=== PATIENT | female | born 1960 | race Caucasian/White ===

== ENCOUNTER → 2017-10-03 12:40 | Outpatient (CLI) | payer OTHER, SELFPAY | PROVIDERS: Family Provider Physician Assistant; PCP Physician Assistant; Visit Provider Physician Assistant | DX: E28.39 Other primary ovarian failure (principal); Z78.0 Asymptomatic menopausal state | CPT/HCPCS: 77080 ==

== ENCOUNTER → 2017-10-07 15:17 | Outpatient (CLI) | payer OTHER, SELFPAY ==
--- NOTE | 2017-10-07 15:19 | DI.RAD.S_ITS ---
PROCEDURE: XR CHEST 2V INDICATIONS: Persistant cough TECHNIQUE: 2 views of the chest were acquired. COMPARISON: [facility], , CHEST 2 VIEW, 03/16/2010, 10:35. FINDINGS: Surgical changes and devices: None. Lungs and pleura: No pleural effusions or pneumothorax. Lungs are clear. Mediastinum: Mediastinal contours are normal. Heart size is normal. Bones and chest wall: No suspicious bony abnormalities. Soft tissues appear unremarkable. IMPRESSION: No acute disease Dictated by: Hector Saleh M.D. on 10/07/2017 at 15:46 Approved by: Hector Saleh M.D. on 10/07/2017 at 15:47
== END ==
PROVIDERS: Family Provider Physician Assistant; PCP Physician Assistant; Visit Provider Physician Assistant
DX: R05 Cough (principal)
CPT/HCPCS: 71046

== ENCOUNTER → 2017-10-17 12:31 | Outpatient (CLI) | payer OTHER, SELFPAY ==
--- NOTE | 2017-10-17 12:32 | DI.MG.S_ITS ---
BILATERAL DIGITAL SCREENING MAMMOGRAM 3D/2D WITH CAD: 10/17/2017 CLINICAL: Routine screening. Family history of breast cancer. Comparison is made to exams dated: 12/24/2013 mammogram, 09/03/2012 mammogram, and 09/13/2011 mammogram - [facility]. There are scattered fibroglandular elements in both breasts. Current study was also evaluated with a Computer Aided Detection (CAD) system. There is a focal asymmetry in the right breast at 8 o'clock middle depth. No other significant masses, calcifications, or other findings are seen in either breast. IMPRESSION: INCOMPLETE: NEEDS ADDITIONAL IMAGING EVALUATION The focal asymmetry in the right breast is indeterminate. Additional views with possible ultrasound are recommended. This exam was interpreted at Station ID: [id number]. NOTE: For mammograms, a report in lay terms will be sent to the patient. Approximately 15% of breast malignancies will not be visualized mammographically. In the management of a palpable breast mass, a negative mammogram must not discourage biopsy of a clinically suspicious lesion. Electronically Signed By: Kailyn perez/ephraim:10/17/2017 14:23:28 letter sent: Additional Imaging Needed ACR BI-RADS Category 0: Incomplete 3340F
== END ==
PROVIDERS: Family Provider Physician Assistant; PCP Physician Assistant; Visit Provider Physician Assistant
DX: Z12.31 Encounter for screening mammogram for malignant neoplasm of breast (principal); Z80.3 Family history of malignant neoplasm of breast
CPT/HCPCS: 77063; 77067

== ENCOUNTER → 2017-10-31 08:57 | Outpatient (CLI) | payer OTHER, SELFPAY ==
--- NOTE | 2017-10-31 08:59 | DI.MG.S_ITS ---
UNILATERAL RIGHT DIGITAL DIAGNOSTIC MAMMOGRAM 3D/2D WITH ADDITIONAL VIEWS: 10/31/2017 CLINICAL: Additional evaluation requested from prior study. Comparison is made to exams dated: 10/17/2017 mammogram, 12/24/2013 mammogram, and 09/03/2012 mammogram - [facility]. There are scattered fibroglandular elements in the right breast. There is a 1.2 cm oval equal density mass with a circumscribed margin in the right breast at 9 o'clock middle depth. No other significant masses or calcifications are seen in the breast. IMPRESSION: INCOMPLETE: NEEDS ADDITIONAL IMAGING EVALUATION The 1.2 cm oval equal density mass in the right breast is indeterminate. An ultrasound is recommended. This exam was interpreted at Station ID: [id number]. NOTE: For mammograms, a report in lay terms will be sent to the patient. Approximately 15% of breast malignancies will not be visualized mammographically. In the management of a palpable breast mass, a negative mammogram must not discourage biopsy of a clinically suspicious lesion. Electronically Signed By: eJsus patricia/ephraim:10/31/2017 11:52:27 copy to: Benny Mendes ACR BI-RADS Category 0: Incomplete 3340F
--- NOTE | 2017-10-31 08:59 | DI.US.S_ITS ---
ULTRASOUND OF RIGHT BREAST: 10/31/2017 CLINICAL: Patient returns for additional imaging over a suspected mass in the right breast. Comparison is made to exams dated: 10/31/2017 mammogram, 10/17/2017 mammogram, and 02/07/2014 [facility]. Color flow ultrasound of the right breast was performed. Thompson scale images of the real-time examination were reviewed. There is a benign 9 mm simple cyst in the right breast at 9 o'clock middle depth. This correlates with mammography findings. IMPRESSION: BENIGN There is no sonographic evidence of malignancy. The 9 mm simple cyst in the right breast is benign. A 1 year screening mammogram is recommended. This exam was interpreted at Station ID: [id number]. Electronically Signed By: Jesus patricia/ephraim:10/31/2017 11:53:10 copy to: Benny Mendes letter sent: Normal Exam Ultrasound BI-RADS: 2 Benign
== END ==
PROVIDERS: Family Provider Physician Assistant; PCP Physician Assistant; Visit Provider Physician Assistant
DX: R92.8 Other abnormal and inconclusive findings on diagnostic imaging of breast (principal); N60.01 Solitary cyst of right breast
CPT/HCPCS: 76642; 77065; G0279

== ENCOUNTER → 2017-11-21 09:03 | Outpatient (CLI) | payer OTHER, SELFPAY ==
[2017-11-21 10:29] LABS: Cholesterol 163 mg/dL (140-199); HDL Cholesterol 43 mg/dL (40-60); LDL Cholesterol Calculated 102 mg/dL (<100); Triglycerides 89 mg/dL (35-150)
== END ==
PROVIDERS: Family Provider Physician Assistant; PCP Physician Assistant; Visit Provider Physician Assistant
DX: Z13.220 Encounter for screening for lipoid disorders (principal)
CPT/HCPCS: 36415; 80061

== ENCOUNTER → 2019-02-12 14:59 | Outpatient (CLI) | payer OTHER, SELFPAY ==
--- NOTE | 2019-02-12 15:04 | DI.RAD.S_ITS ---
PROCEDURE: XR KNEE LT 3V INDICATIONS: left knee pain TECHNIQUE: 3 views of the knee were acquired. COMPARISON: [facility], , KNEE 3V LEFT, 11/30/2015, 10:38. FINDINGS: Bones: No fractures or dislocations. No suspicious bony lesions. There are moderate degenerative changes of the medial compartment of the left knee as evidenced by joint space narrowing, periarticular sclerosis, and osteophyte formation. There is mild degenerative change of the patellar compartment as evidenced by osteophyte formation and joint space narrowing. There is minimal degenerative change of the lateral compartment. Soft tissues: No joint effusion. IMPRESSION: Degenerative changes of the left knee as described above, worst in the medial compartment. Dictated by: Wu Urban M.D. on 02/12/2019 at 17:48 Approved by: Wu Urban M.D. on 02/12/2019 at 17:54
== END ==
PROVIDERS: PCP Physician Assistant; Visit Provider Nurse Practitioner Family
DX: M25.562 Pain in left knee (principal)
CPT/HCPCS: 73562

== ENCOUNTER → 2019-05-03 08:12 | Outpatient (CLI) | payer OTHER, SELFPAY ==
--- NOTE | 2019-05-03 | DI.MRI.S_ITS ---
PROCEDURE: MR KNEE LT WO CON INDICATIONS: unilateral primary osteoarthritis, left knee TECHNIQUE: [employer] protocol was performed. Noncontrast sagittal PD fast spin echo and T2 fast spin echo with fat saturation, sagittal 3-D FLASH with fat saturation; coronal T1 spin echo and PD fast spin echo with fat saturation, and axial PD fast spin echo with fat saturation through the knee. COMPARISON: [facility], CR, XR KNEE LT 3V, 02/12/2019, 15:13. FINDINGS: Image quality: Excellent. Menisci: Medial meniscal tear involving the body and anterior horn with partial extrusion. Abnormal signal extends to the superior articular surface as well as the periphery. Lateral meniscus intact. Cruciate ligaments: Anterior cruciate ligament appears intact. Posterior cruciate ligament appears intact. Medial structures: There is medial bowing of the medial collateral ligament, with mild internal signal changes and no complete rupture. There is adjacent soft tissue edema. The appearance could reflect reactive changes to medial compartment pathology, versus low-grade sprain of the MCL. Pes anserinus tendons appear grossly unremarkable. Semimembranosus tendon appears intact. Lateral structures: The lateral collateral ligament intact. Biceps femoris tendon appears intact. Popliteus tendon grossly unremarkable. Iliotibial band appears intact. Anterior structures: Quadriceps tendon intact. Medial and lateral patellofemoral ligaments intact. There is mild patellar tendinopathy. Prepatellar and superficial infrapatellar subcutaneous edema/fluid. Bones and cartilage: No focal marrow contusion or discrete low signal fracture line. Within the medial compartment, diffuse partial-thickness loss of the femoral and tibial articular cartilage Within the lateral compartment, mild surface fraying of the central weightbearing tibial cartilage. No focal femoral cartilage defect Within the patellofemoral compartment, diffuse surface fraying of the femoral and patellar articular cartilage. Joint space: Small joint effusion. Westbrook's cyst is seen measuring approximately 4 cm in the cephalocaudad dimension. No evidence of intra-articular loose body identified. IMPRESSION: Medial meniscal tear involving the body and anterior horn with partial extrusion as detailed above Patellar tendinopathy with adjacent fluid/edema Mild tricompartmental degenerative joint disease as above. Small joint effusion Westbrook's cyst Dictated by: Hector Saleh M.D. on 05/03/2019 at 13:06 Approved by: Hector Saleh M.D. on 05/03/2019 at 13:12
== END ==
PROVIDERS: PCP Physician Assistant; Visit Provider Orthopaedic Surgery Adult Reconstructive Orthopaedic Surgery
DX: M17.12 Unilateral primary osteoarthritis, left knee (principal); S83.242A Other tear of medial meniscus, current injury, left knee, initial encounter; M71.22 Synovial cyst of popliteal space [Baker], left knee; M25.462 Effusion, left knee
CPT/HCPCS: 73721

== ENCOUNTER → 2019-05-11 15:36 | Outpatient (CLI) | payer OTHER, SELFPAY ==
[2019-05-11 16:24] LABS: Add Manual Diff / Slide Review NO; Basophils Absolute Auto 0 /uL (0-100); Basophils Percent Auto 0.7 % (0-2); Eosinophils Absolute Auto 200 /uL (0-450); Eosinophils Percent Auto 2.4 % (2-4); Hematocrit 40.8 % (36-46); Lymphocytes Absolute Auto 2500 /uL (1100-4500); Lymphocytes Percent Auto 36.8 % (25-40); Mean Corpuscular HGB Conc 34.2 % (30-36); Mean Corpuscular Hemoglobin 28.9 PG (26-34); Mean Corpuscular Volume 84.4 fL (80-100); Monocytes Absolute Auto 600 /uL (0-900); Monocytes Percent Auto 8.3 % (3-14); Neutrophils Absolute Auto 3500 /uL (1500-7000); Neutrophils Percent Auto 51.8 % (50-75); Platelet Count 246 X10^3/uL (150-400); Red Blood Cell Count 4.83 X10^6/uL (4.0-5.2); Red Cell Distribution Width 13.8 % (11.6-14.8); White Blood Cell Count 6.8 X10^3/uL (4.5-11.0)
[2019-05-11 16:38] LABS: BUN Creatinine Ratio 28.3 (6-22); Blood Urea Nitrogen 17 mg/dL (7-17); Calcium 10.1 mg/dL (8.4-10.2); Carbon Dioxide 26 mmol/L (22-32); Chloride 104 mmol/L (98-107); Estimated Glomerular Filt Rate > 60.0 mL/min (>60); Glucose 87 mg/dL (80-110); HEMOLYSIS < 15 (0-50); Potassium 4.3 mmol/L (3.4-5.1); Sodium 141 mmol/L (137-145)
== END ==
PROVIDERS: PCP Physician Assistant; Referring Provider Orthopaedic Surgery Adult Reconstructive Orthopaedic Surgery; Visit Provider Orthopaedic Surgery Adult Reconstructive Orthopaedic Surgery
DX: Z01.818 Encounter for other preprocedural examination (principal); Z01.812 Encounter for preprocedural laboratory examination
CPT/HCPCS: 36415; 80048; 85025; 93005

== ENCOUNTER → 2020-03-27 17:47 | Outpatient (CLI) | payer OTHER, SELFPAY ==
--- NOTE | 2020-03-27 17:48 | DI.MG.S_ITS ---
BILATERAL DIGITAL SCREENING MAMMOGRAM 3D/2D WITH CAD: 03/27/2020 CLINICAL: Routine screening. Family history of breast cancer. Comparison is made to exams dated: 10/31/2017 mammogram, 10/17/2017 mammogram, 12/24/2013 mammogram, and 10/13/2012 mammogram - [facility]. There are scattered fibroglandular elements in both breasts. Current study was also evaluated with a Computer Aided Detection (CAD) system. There is a new 1.3 cm round equal density asymmetry with a circumscribed margin in the right breast at 11 o'clock middle depth. No other significant masses, calcifications, or other findings are seen in either breast. IMPRESSION: INCOMPLETE: NEEDS ADDITIONAL IMAGING EVALUATION The new 1.3 cm round equal density asymmetry in the right breast most likely is a cyst and is indeterminate. Additional views with possible ultrasound are recommended. This exam was interpreted at Station ID: [id number]. NOTE: For mammograms, a report in lay terms will be sent to the patient. Approximately 15% of breast malignancies will not be visualized mammographically. In the management of a palpable breast mass, a negative mammogram must not discourage biopsy of a clinically suspicious lesion. Electronically Signed By: Kristin quiros/ephraim:03/29/2020 13:44:32 letter sent: Additional Imaging Needed ACR BI-RADS Category 0: Incomplete 3340F
== END ==
PROVIDERS: PCP Nurse Practitioner Family; Referring Provider Nurse Practitioner Family; Visit Provider Nurse Practitioner Family
DX: Z12.31 Encounter for screening mammogram for malignant neoplasm of breast (principal); Z80.3 Family history of malignant neoplasm of breast
CPT/HCPCS: 77063; 77067

== ENCOUNTER → 2020-04-26 15:01 | Outpatient (CLI) | payer OTHER, SELFPAY ==
--- NOTE | 2020-04-26 | DI.MG.S_ITS ---
BILATERAL DIGITAL DIAGNOSTIC MAMMOGRAM 3D/2D WITH ADDITIONAL VIEWS: 04/26/2020 CLINICAL: Additional evaluation requested from prior study. Comparison is made to exams dated: 03/27/2020 mammogram, 10/17/2017 mammogram, and 12/24/2013 mammogram - [facility]. There are scattered fibroglandular elements in both breasts. Redemonstration of previously described 1.3 cm round equal density asymmetry with a circumscribed margin in the right breast at 11 o'clock middle depth. This is seen in additional views and is not significantly changed. There is a 0.3cm oval equal density focal asymmetry in the right breast 10 o'clock axis, middle depth. The possible oval equal density asymmetry in the left breast posterior depth superior region seen on the mediolateral oblique view only is not reproduced and presumably represented superimposed breast tissue. No other significant masses or calcifications are seen in either breast. IMPRESSION: INCOMPLETE: NEEDS ADDITIONAL IMAGING EVALUATION The 1.3 cm round equal density asymmetry in the right breast at 11 o'clock middle depth most likely is a cyst and is indeterminate. There is a 0.3cm oval equal density focal asymmetry in the right breast 10 o'clock axis, middle depth. An ultrasound is recommended for further evaluation and is scheduled to immediately follow this examination. This exam was interpreted at Station ID: [id number]. NOTE: For mammograms, a report in lay terms will be sent to the patient. Approximately 15% of breast malignancies will not be visualized mammographically. In the management of a palpable breast mass, a negative mammogram must not discourage biopsy of a clinically suspicious lesion. Electronically Signed By: Bear Wong M.D. aty/:04/26/2020 16:30:17 ACR BI-RADS Category 0: Incomplete 3340F
--- NOTE | 2020-04-26 15:04 | DI.US.S_ITS ---
ULTRASOUND OF RIGHT BREAST: 04/26/2020 CLINICAL: Patient returns today to evaluate a focal asymmetry in the right breast. Comparison is made to exams dated: 04/26/2020 mammogram, 03/27/2020 mammogram, 10/31/2017 ultrasound, 10/31/2017 mammogram, 10/17/2017 mammogram, and 12/24/2013 mammogram - [facility]. Color flow and real-time ultrasound of the right breast were performed. Thompson scale images of the real-time examination were reviewed. There is a 0.3 cm x 0.3 cm x 0.3 cm oval cyst in the right breast at 10 o'clock middle depth 6 cm from the nipple. This oval cyst is hypoechoic. This correlates with mammography findings. Color flow imaging demonstrates that there is no vascularity present. There also is a 1.2 cm x 1.4 cm x 1.2 cm wider than tall oval cyst in the right breast at 9 o'clock middle depth 6 cm from the nipple. This oval cyst is anechoic with posterior acoustic enhancement. This correlates with mammography findings. Color flow imaging demonstrates that there is no vascularity present. IMPRESSION: PROBABLY BENIGN The 0.3 cm x 0.3 cm x 0.3 cm oval cyst in the right breast at 10 o'clock middle depth resembles a complicated cyst and is probably benign. The 1.2 cm x 1.4 cm x 1.2 cm wider than tall oval simple cyst in the right breast at 9 o'clock middle depth is benign. A follow-up right mammogram and an ultrasound in 6 months is recommended to demonstrate stability. Findings and recommendations were conveyed to the patient during today's evaluation. This exam was interpreted at Station ID: [id number]. Electronically Signed By: Bear Wong M.D. aty/:04/26/2020 16:28:07 letter sent: Followup Recommended Ultrasound BI-RADS: 3 Probably benign
== END ==
PROVIDERS: PCP Nurse Practitioner Family; Referring Provider Nurse Practitioner Family; Visit Provider Nurse Practitioner Family
DX: R92.8 Other abnormal and inconclusive findings on diagnostic imaging of breast (principal); N60.01 Solitary cyst of right breast
CPT/HCPCS: 76642; 77066; G0279

== ENCOUNTER → 2020-10-18 13:45 | Outpatient (CLI) | payer OTHER, SELFPAY ==
[2020-10-18 14:17] LABS: COVID19 -Nasal RAPID Negative (Negative)
== END ==
PROVIDERS: PCP Nurse Practitioner Family; Referring Provider Surgery; Visit Provider Surgery
DX: Z20.822 Contact with and (suspected) exposure to COVID-19 (principal)
CPT/HCPCS: 87635; C9803

== ENCOUNTER 2020-10-19 13:35 | Day surgery (SDC) | payer OTHER, SELFPAY ==
[2020-10-19 14:03] VITALS: BP 132/84; PULSE 98; RESP 16; TEMP 36.3; O2SAT 98; BMI 34.5
[2020-10-19] MEDS: LACTATED RINGERS 1,000 ML 42 ML IV (14:15)
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
[2020-10-19] MEDS: MIDAZOLAM 5 MG/5 ML VIAL IV (14:43)
[2020-10-19] MEDS: fentaNYL 250 MCG/5 ML INJ IV (14:47)
--- NOTE | 2020-10-19 14:54 | PM.OP.ENDO ---
Operative Date/Time/Diagnoses Date of procedure: 10/19/20 Time of procedure: 14:54 Post-op diagnosis: same Procedure & Clinicians Study performed: colonoscopy Same procedure as scheduled: Yes Indications: colon cancer screening Surgeon: Yolette Mittal Procedure Notes SCOAP/Timeout: Done Procedure in detail: Preop diagnosis: Colon cancer screening Postop diagnosis: Same Operative procedure: Colonoscopy with moderate sedation Surgeon: Kristi Mittal MD Findings: Pandiverticulosis mostly small and scant with the exception the sigmoid colon who has moderate intensity. No polyps Procedure: Patient is placed in a lateral position. Rectal exam performed showing normal tone no masses. Colonoscope inserted into the rectum and advanced to the ileocecal valve with minimal difficulty. Insufflation and extraction of the scope including a retroflexed in the rectum had the above findings. Impression: No polyps. Francis diverticulosis predominantly small with the exception of moderate-sized diverticulosis of the sigmoid colon. She also has external hemorrhoidal tags Plan: Repeat colonoscopy in 10 years unless otherwise indicated by change in family history or clinical condition Scope withdrawal time: 4 Sedation minutes: 12 Findings: diverticulosis Specimen(s): none sent Complications: none Impression: Small scattered pandiverticulosis with increased intensity in size in the sigmoid colon. No polyps. Hemorrhoidal tags. Post-procedure Recommendations: Colonscopy in 10 years and Continue medication(s) Follow up: as needed Disposition: PACU
[2020-10-19 14:58] VITALS: BP 123/77; PULSE 90; RESP 14; TEMP 36.9; O2SAT 92
[2020-10-19 15:03] VITALS: BP 122/71; PULSE 91; RESP 14; O2SAT 93
[2020-10-19 15:09] VITALS: BP 128/80; PULSE 91; RESP 16; O2SAT 96
[2020-10-19 15:11] VITALS: BP 136/73; PULSE 91; RESP 16; TEMP 36.4; O2SAT 96
== END 2020-10-19 15:25 | disposition home or self-care (01) ==
PROVIDERS: PCP Nurse Practitioner Family; Referring Provider Surgery; Visit Provider Surgery
PROC: 0DJD8ZZ Inspection of Lower Intestinal Tract, Via Natural or Artificial Opening Endoscopic (ICD-10-PCS; CPT 45378; principal; 2020-10-19 14:30)
DX: Z12.11 Encounter for screening for malignant neoplasm of colon (principal); K57.30 Diverticulosis of large intestine without perforation or abscess without bleeding; K64.4 Residual hemorrhoidal skin tags
CPT/HCPCS: 45378; 99152; J2250; J3010

== ENCOUNTER → 2021-02-15 08:46 | Outpatient (CLI) | payer OTHER, SELFPAY ==
--- NOTE | 2021-02-15 08:47 | DI.MG.S_ITS ---
UNILATERAL RIGHT DIGITAL DIAGNOSTIC MAMMOGRAM 3D/2D SHORT-TERM FOLLOW-UP: 02/15/2021 CLINICAL: Short term follow up of the right breast. Comparison is made to exams dated: 04/26/2020 ultrasound, 04/26/2020 mammogram, 03/27/2020 mammogram, and 10/31/2017 [facility]. There are scattered fibroglandular elements in right breast. There is a 1.3 cm round equal density asymmetry with a circumscribed margin in the right breast at 11 o'clock middle depth. This is seen in additional views. This is not significantly changed. There also is a 0.3 cm oval equal density asymmetry in the right breast at 10 o'clock middle depth. This is more prominent. No other significant masses or calcifications are seen in the breast. IMPRESSION: INCOMPLETE: NEEDS ADDITIONAL IMAGING EVALUATION The 1.3 cm round equal density asymmetry in the right breast at 11 o'clock middle depth consistent with a cyst is unchanged. Ultrasound is recommended to document sonographic stability, and has been scheduled to follow immediately. The 0.3 cm oval equal density asymmetry in the right breast at 10 o'clock middle depth resembles a cyst or a lymph node and unchanged. Ultrasound is recommended to document sonographic stability, and has been scheduled to follow immediately. This exam was interpreted at Station ID: [id number]. NOTE: For mammograms, a report in lay terms will be sent to the patient. Approximately 15% of breast malignancies will not be visualized mammographically. In the management of a palpable breast mass, a negative mammogram must not discourage biopsy of a clinically suspicious lesion. Electronically Signed By: Lan Hardy M.D. jr/:02/15/2021 11:07:47 ACR BI-RADS Category 0: Incomplete 3340F
--- NOTE | 2021-02-15 08:47 | DI.US.S_ITS ---
LIMITED ULTRASOUND OF RIGHT BREAST: 02/15/2021 CLINICAL: Patient returns for a follow up of the right breast. Comparison is made to exams dated: 02/15/2021 mammogram, 04/26/2020 ultrasound, 04/26/2020 mammogram, 03/27/2020 mammogram, 10/31/2017 ultrasound, and 10/31/2017 mammogram - [facility]. Color flow and real-time ultrasound of the right breast 9-10 o'clock region were performed. Thompson scale images of the real-time examination were reviewed. There is a 1.1 cm x 0.5 cm taller than wide irregular mass in the right breast at 10 o'clock posterior depth 7 cm from the nipple. This irregular mass is hypoechoic with no posterior acoustic shadowing or enhancement. There also is a benign 1.2 cm x 1.4 cm x 1.2 cm wider than tall oval cyst in the right breast at 9 o'clock middle depth 6 cm from the nipple. This oval cyst is anechoic with posterior acoustic enhancement. This abnormality is not significantly changed and correlates with mammography findings. Color flow imaging demonstrates that there is no vascularity present. Additionally, there is a benign 0.3 cm x 0.3 cm x 0.3 cm oval cyst in the right breast at 10 o'clock middle depth 6 cm from the nipple. This oval cyst is hypoechoic. This abnormality is not significantly changed and correlates with mammography findings. Color flow imaging demonstrates that there is no vascularity present. IMPRESSION: SUSPICIOUS OF MALIGNANCY The 1.1 cm x 0.5 cm taller than wide irregular mass in the right breast at 10 o'clock posterior depth is suspicious of malignancy. An ultrasound guided biopsy is recommended. The 1.2 cm x 1.4 cm x 1.2 cm wider than tall oval cyst in the right breast at 9 o'clock middle depth is consistent with a simple cyst and is benign. The 0.3 cm x 0.3 cm x 0.3 cm oval cyst in the right breast at 10 o'clock middle depth resembles a complicated cyst and is benign. This exam was interpreted at Station ID: [id number]. Electronically Signed By: Lan Hardy M.D., jr/ephraim:02/15/2021 11:03:17 letter sent: Biopsy Required Ultrasound BI-RADS: 4 Suspicious for malignancy
== END ==
PROVIDERS: PCP Nurse Practitioner Family; Referring Provider Nurse Practitioner Family; Visit Provider Nurse Practitioner Family
DX: R92.8 Other abnormal and inconclusive findings on diagnostic imaging of breast (principal); N63.11 Unspecified lump in the right breast, upper outer quadrant; N60.01 Solitary cyst of right breast
CPT/HCPCS: 76642; 77065; G0279

== ENCOUNTER → 2021-02-15 09:20 | Outpatient (CLI) | payer OTHER, SELFPAY | PROVIDERS: PCP Nurse Practitioner Family; Referring Provider Nurse Practitioner Family; Visit Provider Nurse Practitioner Family | DX: R92.8 Other abnormal and inconclusive findings on diagnostic imaging of breast (principal) ==

== ENCOUNTER → 2021-02-27 14:11 | Outpatient (CLI) | payer OTHER, SELFPAY ==
--- NOTE | 2021-02-27 | DI.MG.S_ITS ---
UNILATERAL RIGHT DIGITAL DIAGNOSTIC MAMMOGRAM 3D/2D: 02/27/2021 CLINICAL: Post clip right. Comparison is made to exams dated: 02/15/2021 ultrasound, 02/15/2021 mammogram, and 04/26/2020 ultrasound [facility]. There are scattered fibroglandular elements in right breast. There is a marker clip in the appropriate position in the right breast at 10 o'clock .This marker clip placement is at the biopsy site. IMPRESSION: POST PROCEDURE MAMMOGRAM FOR MARKER PLACEMENT There was a successful marker clip placement in the right breast middle depth. This exam was interpreted at Station ID: [id number]. NOTE: For mammograms, a report in lay terms will be sent to the patient. Approximately 15% of breast malignancies will not be visualized mammographically. In the management of a palpable breast mass, a negative mammogram must not discourage biopsy of a clinically suspicious lesion. Electronically Signed By: Hector cifuentes/:02/27/2021 15:38:03 ACR BI-RADS Category Post-procedure mammogram for marker placement
--- NOTE | 2021-02-27 | PATH_ITS ---
[facility] Accession Number: [id number] . 01 Material submitted: . breast - RIGHT BREAST MASS 10:00 7CMFN . 02 Diagnosis: A. Right Breast Mass, 10 o'clock, 7 cm from the Nipple, Biopsy: Detached fragments of papilloma involved by focal atypical ductal hyperplasia. Apocrine metaplasia is also present. . COMMENT: Clinical and radiographic correlation is necessary. [facility] 03/02/2021 1444 Local . 02 Electronically signed: . Vandana Boswell MD, Pathologist NPI- [id number] . 01 Gross description: . Received one formalin-filled container, labeled with the patient's name and labeled right breast 10 o'clock 7 cm FN. Received with a plastic filter in container, sample loose in container and consists of multiple fragments of yellow-castro soft tissue and blood which range in size from 0.2 x 0.2 x 0.2 cm to 0.6 x 0.2 x 0.2 cm. All fragments are totally submitted in one cassette. Possible collection date and time per requisition: 02/27/2021 at 15:24. Total fixation time: Approximately 12 hours. (DC:[id number]) /FRR 02/28/2021 0333 Local . 02 Microscopic: . A panel of immunostains is obtained on block A1 in order to evaluate the papillary lesion, with appropriately staining external controls. The papillary lesion demonstrates the following immunoprofile: . P63 and Smooth muscle myosin: Present throughout the cores of the papillary lesion. CK5/6: Lost within the focal area of interest. ER: Mostly negative in the area of interest (background apocrine phenotype/metaplasia). . The immunoprofile supports the morphologic impression of focal atypical ductal hyperplasia. . * This test was developed and its performance characteristics determined by [facility]. It has not been cleared or approved by the U.S. Food and Drug Administration. The FDA has determined that such clearance or approval is not necessary. This test is used for clinical purposes. It should not be regarded as investigational or for research. . 02 Pathologist provided ICD-10: R92.8 . 02 CPT . 963078, T39285, S41949 Performed at: 01 [facility] [address] [place] [address] [id number] MD Brendon Jalloh MD Phone: [phone] Performed at: [address] [id number] MD Jacqueline Altman MD Phone: [phone]
--- NOTE | 2021-02-27 14:12 | DI.US.S_ITS ---
ULTRASOUND GUIDED BIOPSY RIGHT BREAST USING VACUUM DEVICE WITH MARKING DEVICE INSERTED: 02/27/2021 CLINICAL: Right breast mass. PATIENT CONSENT: Risks (minor bleeding, infection, vasovagal reaction and repeat procedure), benefits and alternatives were explained to the patient and written informed consent was obtained. Correlation is made to exams dated: 02/15/2021 ultrasound, 02/15/2021 mammogram, 04/26/2020 ultrasound, 04/26/2020 mammogram, 03/27/2020 mammogram, and 10/31/2017 [facility]. An ultrasound guided biopsy using real-time ultrasound was performed for the mass located in the right breast at 10 o'clock .The skin was prepped in the usual manner. Local anesthetic was administered to the access site. A small incision was made in the breast. The abnormality was approached from the lateral aspect. A biopsy needle was placed adjacent to the abnormality under ultrasound guidance. Once the needle was documented to be in the correct location, six specimens were obtained using the Mammotome biopsy system. The patient received additional local anesthetic during the procedure. A clip was inserted into the biopsy cavity. The specimens were sent to the laboratory for pathological analysis. IMPRESSION: ULTRASOUND GUIDED BIOPSY HIGH RISK BENIGN Ultrasound guided biopsy of the mass in the right breast at 10 o'clock was successful. Pathology indicated papilloma with focal atypical ductal hyperplasia. There is also apocrine metaplasia. Pathology and imaging findings are concordant. Recommend surgical consultation for further evaluation of this high risk benign mass. This exam was interpreted at Station ID: [id number]. Hector cifuentes,aty/:03/05/2021 16:36:07
== END ==
PROVIDERS: PCP Nurse Practitioner Family; Referring Provider Nurse Practitioner Family; Visit Provider Nurse Practitioner Family
DX: D24.1 Benign neoplasm of right breast (principal); N60.81 Other benign mammary dysplasias of right breast
CPT/HCPCS: 19083; 77065

== ENCOUNTER → 2021-03-26 15:25 | Outpatient (CLI) | payer OTHER, SELFPAY ==
[2021-03-26 16:54] LABS: COVID19 -Nasal RAPID Negative (Negative)
== END ==
PROVIDERS: PCP Nurse Practitioner Family; Referring Provider Surgery; Visit Provider Surgery
DX: Z01.812 Encounter for preprocedural laboratory examination (principal); Z20.822 Contact with and (suspected) exposure to COVID-19
CPT/HCPCS: 87635; C9803

== ENCOUNTER 2021-03-28 07:06 | Day surgery (SDC) | payer OTHER, SELFPAY ==
[2021-03-27 13:14] VITALS: BMI 34.3
[2021-03-28] VITALS (15 sets, daily range): BP systolic 118–146; BP diastolic 71–93; PULSE 63–90; RESP 11–16; TEMP 36.1–36.4; O2SAT 91–99; BMI 34.3
--- NOTE | 2021-03-28 | DI.MG.S_ITS ---
SPECIMEN: 03/28/2021 CLINICAL: Abnormal mammogram. Correlation is made to exams dated: 03/28/2021 localization, 02/27/2021 mammogram, and 02/15/2021 mammogram - [facility]. The imaged specimen contains a biopsy marker and localization wire, both at the very edge of the specimen. IMPRESSION: SPECIMEN The imaged specimen contains a biopsy marker and localization wire, both at the very edge of the specimen. This exam was interpreted at Station ID: [id number]. Lan Hardy M.D. jr/:03/28/2021 11:53:37
--- NOTE | 2021-03-28 | DI.MG.S_ITS ---
DIGITAL MAMMOGRAPHY GUIDED NEEDLE LOCALIZATION RIGHT BREAST WITH POST DIGITAL MAMMOGRAPHIC IMAGIN03/28/2021 CLINICAL: ABNORMAL MAMMOGRAM. Correlation is made to exams dated: 02/27/2021 mammogram, 02/15/2021 mammogram, and 04/26/2020 mammogram - [facility]. A needle localization using digital mammography guidance was performed for the marker clip located in the right breast at 11 o'clock middle depth. The skin was prepped in the usual manner. Local anesthetic was administered to the access site. The localization was approached from the lateral aspect. A [employer] localization wire was inserted adjacent to the marker under digital mammography guidance. Post placement digital mammographic imaging was obtained. IMPRESSION: NEEDLE LOCALIZATION Needle localization for the marker clip in the right breast at 11 o'clock middle depth was successful. This exam was interpreted at Station ID: [id number]. Corin werner/ephraim:03/28/2021 10:13:24
--- NOTE | 2021-03-28 | DI.US.S_ITS ---
PROCEDURE: US BREAST RT LIMITED COMPARISON: None. INDICATIONS: PRE-OP WIRE LOC FINDINGS: Biopsy clip marker not identified by ultrasound imaging in wire localization terminated. Wire localization will be performed under mammographic guidance. IMPRESSION: Biopsy clip not ought identified by ultrasound. Ultrasound-guided wire localization canceled. Dictated by: Corin Burns MD, PhD on 04/13/2021 at 10:11 Approved by: Corin Burns MD, PhD on 04/13/2021 at 10:13
--- NOTE | 2021-03-28 | PATH_ITS ---
[facility] Accession Number: [id number] . 01 Material submitted: . PART A: breast - RIGHT BREAST MASS PART B: breast - RIGHT BREAST MASS, ADDITIONAL POSTERIOR MARGIN PART C: breast - RIGHT BREAST MASS, ADDITIONAL INFERIOR MARGIN . 01 Clinical history: . A: RIGHT BREAST MASS, SHORT STITCH SUPERIOR, LONG STITCH LATERAL. B: RIGHT BREAST MASS, ADDITIONAL POSTERIOR MARGIN, (INK NEWBY TRUE POSTERIOR MARGIN) SHORT STITCH SUPERIOR, LONG STITCH C: RIGHT BREAST MASS, ADDITIONAL INFERIOR MARGIN, (INK NEWBY TRUE INFERIOR MARGIN) DHORT STITCH SUPERIOR, LONG STITCH . 02 Diagnosis: A. Right Breast Mass, Excision: Atypical ductal hyperplasia (ADH); see comment. Background breast with apocrine metaplasia. Microcalcifications in association with ADH and benign breast tissue. Biopsy site changes are present. . B. 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 Architectural pattern: Cribriform and micropapillary. 2. Nuclear grade: Intermediate. 3. Necrosis: Punctate necrosis, focally. 4. Extent of DCIS: Present on more than one slide (3 slides with DCIS) corresponding to tissue slices 2-7 spanning approximately 25 mm. 5. Calcifications: Present, in association with DCIS. 6. Resection margins: DCIS is less than 0.5 mm from posterior margin (block B2), less than 0.5 mm from supero-lateral margin (B2), less than 0.5 mm from posterior margin (B3), 0.55 mm from superior margin (B3), 1.5 mm from supero-lateral margin (B3), 0.5 mm from posterior margin (B4), and more than 2 mm from the remaining margins. 7. Estrogen receptor status: Pending and results will be reported in an addendum. 8. Other findings: - ADH is also present. - Fibrocystic change including usual ductal hyperplasia, columnar cell change/columnar cell hyperplasia, microcystic duct dilatation, and apocrine metaplasia. - Biopsy site changes are present. 9. Regional lymph node status: No lymph nodes removed or identified in this specimen. 10. Pathologic stage: pTis . C. 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 Architecture pattern: Cribriform and micropapillary. 2. Nuclear grade: Intermediate. 3. Necrosis: Not identified. 4. Extent of DCIS: Present on more than one slide (3 slides with DCIS) corresponding to tissue slices 1-2 and 4, spanning approximately 18 mm. 5. Calcifications: Present in association with DCIS and benign breast tissue. 6. Resection margins: DCIS is less than 0.5 mm from superior margin (block C1), 0.55 mm from lateral margin (C3), 2.0 mm from medial margin (C3), and more than 2 mm from the remaining margins. 7. Additional findings: - ADH is also present. - Background breast with apocrine metaplasia, focal usual ductal hyperplasia, and hemangioma. - Biopsy site changes are present. . COMMENT: A. In one slide (A2), a 1.2 mm focus of atypical ductal proliferation with scant microcalcifications is present less than 0.5 mm from superior margin; it is extensively cauterized, limiting its morphologic assessment; hence, it is best categorized as ADH at this juncture. [facility] 04/03/2021 1904 Local . 02 Electronically signed: . Vandana Boswell MD, Pathologist NPI- [id number] . 01 Gross description: . A. Specimen A is received in formalin labeled right breast mass and consists of a right lumpectomy specimen. . Weight: 3 grams. Measurement: 2.8 cm from anterior to posterior x 2.5 cm from medial to lateral x 0.8 cm from superior to inferior. Skin ellipse: Absent. Wire: Present penetrating the anterior lateral aspect and terminating from the anterior medial aspect. Margins: The specimen is oriented with a short suture designated superior and a long suture designated lateral, and is inked as follows: Superior blue, inferior green, anterior red, posterior black, medial yellow and lateral orange. Slice: The specimen is serially sectioned from anterior to posterior into eight slices. Clips: There is a balloon-shaped silver metallic biopsy clip within slice #1, which is loosely adherent to the anterior margin, 0.2 cm from the superior and inferior margins and 0.6 cm from the medial and lateral margins. The specimen is entirely submitted. . A1 - Slice 1, anterior margin, perpendicularly sectioned (site of biopsy marker). A2-A4 - Slices 2-7. A5 - Slice 8, posterior margin, perpendicularly sectioned. . B. Specimen B is received in formalin labeled additional posterior margin right breast mass and consists of a 5 gram, 4.0 cm (superior to inferior) x 2.5 cm (medial to lateral) x 1.0 cm (anterior to posterior) castro-yellow lobulated fragment of adipose tissue which is oriented with a short suture designated superior and a long suture designated lateral. The specimen is inked as follows: Superior blue, inferior green, anterior red, posterior black, medial yellow and lateral orange. The specimen is serially sectioned from superior to inferior and entirely submitted. . B1 - Slice 1, superior margin, perpendicularly sectioned. B2-B4 - Slices 2-7. B5- Slice 8, inferior margin, perpendicularly sectioned. . C. Specimen C is received in formalin labeled additional inferior margin and consists of a 3 gram, 3.0 cm (superior to inferior) x 2.0 cm (anterior to posterior) x 1.0 cm (medial to lateral). The specimen is oriented with a short suture designated superior and a long suture designated lateral. The specimen is inked as follows: Superior blue, inferior green, anterior red, posterior black, medial yellow and lateral orange. The specimen is serially sectioned from superior to inferior and entirely submitted. . C1 - Slice 1, superior margin, perpendicularly sectioned. C2-C3 - Slices 2-4. C4 - Slice 5, inferior margin, perpendicularly sectioned. . Formalin fixation time: Approximately 25 hours. (EA:[id number]) /[facility] 03/29/20211811 . 02 Pathologist provided ICD-10: D05.11 . 02 CPT . 940133, 582518, 102789 Performed at: 01 [facility] [address] [place] [address], [place], [place] [id number] MD Brendon Jalloh MD Phone: [phone] Performed at: 02 [facility] [address] [place] [id number] MD Jacqueline Altman MD Phone: [phone]
[2021-03-28] MEDS: LACTATED RINGERS 1,000 ML 100 ML IV ×2 (07:41→17:21)
--- NOTE | 2021-03-28 09:20 | SUR.PREOP ---
0912 hrs: Pt returned from DI.
--- NOTE | 2021-03-28 10:17 | PM.PREOP ---
Pre-operative Note Interval Note History & Physical reviewed/Exam performed by Physician: Yes Changes to H&P: No
[2021-03-28] MEDS: CEFAZOLIN 2 GM/20 ML SYRINGE IV (10:55)
--- NOTE | 2021-03-28 11:00 | SUR.OPER ---
Supine on padded OR bed, head on pillow, arms secured on padded arm boards at <90 degrees abduction, legs uncrossed, safety belt at thigh, tape over blanket over lower legs.
[2021-03-28] MEDS: BUPIVACAINE 0.25% (PF) VIAL 30 ML INJ (11:04)
--- NOTE | 2021-03-28 12:10 | P.OP_ITS ---
Operative Date/Time/Diagnoses Date of procedure: 03/28/21 Time of procedure: 12:10 Pre-op diagnosis: Right breast mass Post-op diagnosis: same Procedure & Clinicians Procedure: Right breast lumpectomy Same procedure as scheduled: Yes Indications: 61-year-old woman with a right breast mass biopsy demonstrates papilloma here for excisional biopsy Surgeon: Xavi Diaz Anesthesia Type: General Operative Notes Findings: Wire and clip were within the specimen however the clip was close to the edge of the specimen and and therefore an additional 2 margins were taken, inferior and a posterior margins Specimen(s): other (Right breast mass short stitch superior long stitch lateral. Additional inferior margin short stitch superior long stitch lateral ink collado the true inferior margin. Additional posterior margin short stitch superior long stitch lateral and collado the true posterior margin) Estimated Blood Loss (mL): 20 Procedure in detail: The patient underwent needle localized prior to the operation. They were brought to the operating room and placed supine on the table. Bilateral lower extremity compression devices were applied. They were intubated with an LMA. They were prepped and draped in sterile fashion. Time-out was performed. An incision on the superior aspect of the right breast was made and subcutaneous tissues were divided. The localizing wire was identified and then brought back within the incision. The end of the wire was within a middle depth breast tissue. The tissue was excised with the wire and the clip. Right breast mass was marked short stitch superior long stitch lateral. Imaging demonstrated that the specimen contained the wire and the associated clip. The clip was ahmet rly close to the edge of the specimen and therefore I took two additional margins a posterior and inferior. Each was marked with a short stich superior and long stich lateral ink denoting the true margins. Subcutaneous tissues were reapproximated with 3 0 Vicryl sutures skin closed with Monocryl followed by application of Dermabond. Complications: none Post-operative Condition: stable Disposition: same day surgery
[2021-03-28] MEDS: ONDANSETRON 4 MG/2 ML INJ IV (12:28)
[2021-03-28] MEDS: ACETAMINOPHEN 325 MG TABLET 975 MG PO (14:01)
--- NOTE | 2021-03-28 17:13 | SUR.PHASEII ---
1445 Patient discharged to home after getting up and ambulating to bathroom, steady on feet, denying dizziness or nausea. Pt voided without trouble. Right breast with steri-strips clean, dry and intact. Pt put on her supportive bra at discharge. Pt verbalized understanding of discharge instructions.
== END 2021-03-28 14:45 | disposition home or self-care (01) ==
PROVIDERS: PCP Nurse Practitioner Family; Referring Provider Surgery; Visit Provider Surgery
PROC: (CPT 19125; principal; 2021-03-28 10:30)
DX: D05.11 Intraductal carcinoma in situ of right breast (principal); K21.9 Gastro-esophageal reflux disease without esophagitis; J45.909 Unspecified asthma, uncomplicated; Z17.0 Estrogen receptor positive status [ER+]
CPT/HCPCS: 19125; 19281; 76098; 76642; 82962; C1819; J0690; J1100; J2250; J2405; J2704; J3010

== ENCOUNTER → 2021-05-05 10:41 | Outpatient (CLI) | payer OTHER, SELFPAY ==
[2021-05-05 12:08] LABS: Hematocrit 40.8 % (36-46); Hemoglobin 13.8 g/dL (12.0-16.0); Mean Corpuscular HGB Conc 33.8 % (30-36); Mean Corpuscular Hemoglobin 28.8 PG (26-34); Platelet Count 221 X10^3/uL (150-400); Red Cell Distribution Width 13.5 % (11.6-14.8); White Blood Cell Count 4.9 X10^3/uL (4.5-11.0)
[2021-05-05 12:30] LABS: Alanine Aminotransferase 22 IU/L (<35); Albumin 4.1 g/dL (3.5-5.0); Albumin Globulin Ratio 1.6 (1.0-2.8); Alkaline Phosphatase 56 U/L (38-126); Aspartate Aminotransferase 25 IU/L (14-36); BUN Creatinine Ratio 15.7 (6-22); Bilirubin Total 0.7 mg/dL (0.2-1.3); Blood Urea Nitrogen 11 mg/dL (7-17); Calcium 9.2 mg/dL (8.4-10.2); Carbon Dioxide 28 mmol/L (22-32); Chloride 107 mmol/L (98-107); Cholesterol 184 mg/dL (140-199); Estimated Glomerular Filt Rate > 60.0 mL/min (>60); Globulin 2.6 g/dL (1.7-4.1); Glucose 97 mg/dL (80-110); HDL Cholesterol 51 mg/dL (40-60); HEMOLYSIS < 15 (0-50); LDL Cholesterol Calculated 117 mg/dL (<100); Potassium 4.2 mmol/L (3.4-5.1); Sodium 141 mmol/L (137-145); Total Protein 6.7 g/dL (6.3-8.2); Triglycerides 80 mg/dL (35-150)
== END ==
PROVIDERS: PCP Nurse Practitioner Family; Referring Provider Nurse Practitioner Family; Visit Provider Nurse Practitioner Family
DX: Z00.00 Encounter for general adult medical examination without abnormal findings (principal); Z13.6 Encounter for screening for cardiovascular disorders
CPT/HCPCS: 36415; 80053; 80061; 85027

== ENCOUNTER → 2021-05-08 10:05 | Outpatient (CLI) | payer OTHER, SELFPAY ==
[2021-05-08 11:20] LABS: COVID19 -Nasal RAPID Negative (Negative)
== END ==
PROVIDERS: PCP Nurse Practitioner Family; Visit Provider Surgery
DX: Z01.812 Encounter for preprocedural laboratory examination (principal); Z20.822 Contact with and (suspected) exposure to COVID-19
CPT/HCPCS: 87635; C9803

== ENCOUNTER → 2021-05-09 07:06 | Outpatient (CLI) | payer OTHER, SELFPAY ==
--- NOTE | 2021-05-09 07:07 | DI.NM.S_ITS ---
PROCEDURE: NM SENTINEL NODE W IMAGING RADIOPHARMACEUTICAL: 0.5 mCi Millipore filtered Tc-99m sulfur colloid. INDICATIONS: surgery COMPARISON: [facility], US BX BREAST PERC W VAC DEVICE, 02/27/2021, 14:29. [facility], BREAST RT LIMITED, 03/28/2021, 7:56. TECHNIQUE: Written informed consent was obtained. The area around the region of concern on the right was prepped and draped in a sterile fashion. Tc-99m sulfur colloid was injected intra-dermally and subcutaneously around the biopsy scar. Images were obtained approximately 60 minutes after tracer injection. FINDINGS: A couple of lymph nodes are identified in the right axilla. In addition, there may be 2 intramammary lymph nodes. IMPRESSION: [place]ospers lymph node mapping for intra-operative sentinel lymph node localization. Two lymph nodes in the right axilla and possible 2 intramammary lymph nodes are seen. Dictated by: Vasquez Eckert M.D. on 05/09/2021 at 10:35 Approved by: Vasquez Eckert M.D. on 05/09/2021 at 10:40
== END ==
PROVIDERS: PCP Nurse Practitioner Family; Referring Provider Surgery; Visit Provider Surgery
DX: N63.10 Unspecified lump in the right breast, unspecified quadrant (principal); N60.81 Other benign mammary dysplasias of right breast; N60.99 Unspecified benign mammary dysplasia of unspecified breast
CPT/HCPCS: 78195; A9541

== ENCOUNTER 2021-05-09 07:10 | Observation (INO) | payer OTHER, SELFPAY ==
[2021-05-03 11:47] VITALS: BMI 33.6
[2021-05-09] VITALS (21 sets, daily range): BP systolic 124–161; BP diastolic 67–87; PULSE 67–800; RESP 13–18; TEMP 36.3–37; O2SAT 91–98; BMI 33.6
--- NOTE | 2021-05-09 | PATH_ITS ---
[facility] Accession Number: [id number] . 01 Material submitted: . PART A: breast - RIGHT BREAST PART B: lymph node - RIGHT BREAST SENTINEL LYMPH NODES . 02 Diagnosis: A. Right Breast, Mastectomy: Ductal carcinoma in situ (DCIS): 1. Architectural patterns: Micropapillary, solid, and cribriform. 2. Nuclear grade: Intermediate. 3. Necrosis: Not identified. 4. Extent of DCIS: Present as discontiguous scattered foci on more than one slide (A1-A2, A7-A8, A10, A13, A15, A19-A21) with the largest approximate contiguous focus of 20 mm. 5. Calcifications: Present, in association with DCIS, benign breast tissue, and media of vessels. 6. Resection margins: Negative, with the following closest distances: - DCIS is 0.5 mm from posterior margin (block A21), 1.5 mm from posterior margin (A1), 2 mm from posterior margin (A20), 1.1 mm from the anterior inferior margin (A1), and 1.5 mm from the anterior superior margin (A8). 7. Estrogen receptor status: Positive (as reported on the prior excision specimen, [facility] case [id number], 03/29/2021). 8 Nipple and skin: Not involved. 9. Regional lymph node status: None identified within the mastectomy specimen (see part B below: two sentinel lymph nodes, negative for malignancy). 10. Other findings: - Spectrum of changes including atypical ductal hyperplasia involving intraductal papilloma. - Excision/cavity site with associated foreign body giant cell reaction. - Columnar cell change/columnar cell hyerplasia, florid usual ductal hyperplasia, and small fibroadenoma. 11. Pathologic stage: pTis pN0(sn). . B. Right Breast [place] Lymph Nodes, Dissection: Two lymph nodes, negative for malignancy (0/2). [facility] 05/15/2021 1435 Local . 02 Electronically signed: . Vandana Boswell MD, Pathologist NPI- [id number] . 01 Gross description: . A. Received in formalin, labeled with the patient's name right breast, short stitch-superior, long stitch-lateral, is a 403-gram, 16.5 cm superior to inferior, 14.5 cm medial to lateral, 4.7 cm anterior to posterior right breast mastectomy specimen, previously oriented (short stitch-superior, long stitch-lateral) with a 9.0 x 4.5 cm pink-castro wrinkled skin ellipse attached with a 3.0 x 3.0 cm nipple areolar complex, and 1.3 cm everted, freely moveable nipple. No epidermal lesions identified. The specimen is inked: Superior anterior-blue, inferior anterior-green, posterior-black. Sectioning from medial to lateral reveals a 2.5 cm medial to lateral, 2.1 cm anterior to posterior, 2.0 cm superior to inferior poorly defined centrally cavitated fibrous lesion at the midline outer quadrant, 9-10 o'clock, within a 5.2 cm medial to lateral, 5.0 cm superior to inferior, 3.0 cm anterior to posterior background area of fibrocystic changes, yellow-castro chalky changes, and gritty fibroglandular densities diffusely scattered throughout the area. This area spans the 7-10 o'clock region. The cavitated lesion is 0.4 cm to superior anterior margin, 0.9 cm to inferior anterior margin, 1.0 cm to posterior margin, 1.5 cm to closest skin surface, 3.9 cm to nipple. The remaining tissue is yellow-castro, fibrofatty (80% fatty, 20% fibrous). The cavitated lesion is entirely submitted, and the surrounding background area of fibrocystic changes and fibroglandular densities is extensively sampled. . Summary of Sections: A1-A10. Cavitated lesion, serially submitted from lateral to medial direction, including superior anterior and inferior anterior margins, one piece each. A11. Closest posterior margin, two pieces. A12. Immediately posterior to cassette A7, including fibrocystic changes and posterior margin, one piece. A13-A19. Immediately medial to cassette A12, then serially submitted from lateral to medial direction, area of fibrocystic changes, including posterior margin, one piece each. A20-A23. Immediately lateral to cassette A1, then serially submitted from medial to lateral direction, one piece each. A24. Closest skin resection margin, shave and en face, two pieces. A25. Nipple, one piece. A26. Upper outer quadrant, two pieces. A27. Lower outer quadrant, two pieces. A28. Upper inner quadrant, two pieces. A29. Lower inner quadrant, two pieces. . Note: No time is placed on the container or the requisition for the formalin fixation, but the specimen was removed and placed in formalin on 05/09/2021 and the cassettes are placed in formalin at 05/10/2021 at 10:30 a.m. . B. Received in formalin, labeled with the patient's name and right breast sentinel lymph nodes, are two pink-castro lymph nodes, 0.7 to 0.8 cm in greatest dimension, both sectioned and entirely submitted. . Summary of Sections: B1-B2. One lymph node quadrisected each. (AR:[id number]/) /MRV 05/10/2021 1258 Local . 02 Pathologist provided ICD-10: C50.811 . 02 CPT . 243493, 350808 Performed at: 01 [facility] [address] [place] [id number] MD Brendon Jalloh MD Phone: [phone] Performed at: 02 [facility] [address] [place] [id number] MD Jacqueline Altman MD Phone: [phone]
[2021-05-09] MEDS: ACETAMINOPHEN 325 MG TABLET 975 MG PO (07:42)
[2021-05-09] MEDS: LACTATED RINGERS 1,000 ML 42 ML IV (07:52)
--- NOTE | 2021-05-09 09:11 | PM.PREOP ---
Pre-operative Note COVID-19 Criteria for continued procedure: Expected advancement of disease process Interval Note History & Physical reviewed/Exam performed by Physician: Yes Changes to H&P: No
[2021-05-09] MEDS: SCOPOLAMINE 1 PATCH TOP (09:14)
[2021-05-09] MEDS: APREPITANT 40 MG CAPSULE PO (09:15)
[2021-05-09] MEDS: CEFAZOLIN 2 GM/20 ML SYRINGE IV (09:30)
[2021-05-09] MEDS: METHYLENE BLUE 50 MG/10 ML VIAL INJ (09:48)
[2021-05-09] MEDS: BUPIVACAINE 0.25% (PF) VIAL 30 ML INJ (09:49)
--- NOTE | 2021-05-09 09:54 | SUR.OPER ---
Supine on padded OR bed, head on pillow, arms secured on padded arm boards at <90 degrees abduction, legs uncrossed, safety belt at thigh, tape over blanket over lower legs.
[2021-05-09] MEDS: LACTATED RINGERS 1,000 ML 100 ML IV (11:29)
--- NOTE | 2021-05-09 12:06 | PM.OP.1 ---
Operative Date/Time/Diagnoses Date of procedure: 05/09/21 Time of procedure: 12:06 Pre-op diagnosis: Ductal carcinoma in Situ Post-op diagnosis: same Procedure & Clinicians Procedure: Right mastectomy with sentinel lymph node biopsy Same procedure as scheduled: Yes Indications: 61-year-old woman multiple previous surgical excisions of the right for benign breast disease recently underwent a right lumpectomy for intraductal papilloma. Pathology demonstrated the intraductal papilloma however it also demonstrated ductal carcinoma in Situ with close margins. Given her most recent findings and in light of her multiple previous diseases of the right breast she elected to pursue completion mastectomy Surgeon: Xavi Diaz Click Yes if Unassisted: Yes Anesthesia Type: General Operative Notes Findings: Moderate scarring within the right mastectomy field upper outer quadrant from her previous lumpectomy. No pathological lymphadenopathy. Two sentinel lymph nodes were identified. Specimen(s): other (Right breast short stitch superior long stitch lateral. Graham node x2) Estimated Blood Loss (mL): 40 Procedure in detail: Patient was brought to the operating room placed supine on the table. Bilateral lower extremity compression devices were applied. She received 2 g of Ancef prior to skin incision. She was intubated with an LMA. She was then prepped and draped in sterile fashion. Time-out was performed ensure the correct patient procedure necessary equipment within the operating room. She had been previously injected with radio labeled colloid. I injected 2 mL of methylene blue into the periareolar tissue and massaged it into the right breast for 5 minutes. An elliptical incision around the nipple areola complex was made with the knife. The subcutaneous tissue was divided with electrocautery. Skin flaps were raised to separate the breast tissue from the skin along the subdermal plexus. The dissection was extended superior to the clavicle, medial to the sternum, inferior the the inframamary fold and lateral to the anterior border of the latisimus dorsi. Next the breast tissue was from the underlying pectoralis fascia. There were moderate adhesions within the right upper outer quadrant from her recent lumpectomy. The breast was passed off the field marked short stitch superior long stitch lateral. I inspected the flaps and trimmed a small amount of additional thickness from the inferior flap for uniform thickness. Using a hand held gamma probe I localized the are of increased radioactivity within the right axillia via the mastectomy incision. The axillary tissue was carefully dissected towards the area of maximal radioactivity. A sentinel lymph node was identified its identity confirmed by its blue appearance. I was ligated with medium clips and transected sharply. I returned the gamma probe to the field and there continued to be increased radioactivity and a second sentinel lymph node was identified and dissected in similar fashion. A 19 Turkmen Jones drain was placed into the cavity and secured. The surgical field was inspected for hemostasis and then the subcutaneous tissue was closed with the 3 0 Vicryl suture and skin closed with 4 Monocryl followed by Demand. Patient tolerated procedure well she emerged from anesthesia was extubated and transferred to recovery room in stable condition. Complications: none Post-operative Condition: stable Disposition: observation
[2021-05-09] MEDS: ONDANSETRON 4 MG/2 ML INJ IV (12:15)
[2021-05-09] MEDS: KETOROLAC 30 MG/ML VIAL IV (12:20)
[2021-05-09] MEDS: METOCLOPRAMIDE 10 MG/2 ML INJ IV (12:28)
--- NOTE | 2021-05-09 12:44 | SUR.PHASEI ---
Pt to PACU at [address] Bustamante in bed breathing unassisted on room air after general anesthesia. SBAR report at bedside.
[2021-05-09] MEDS: hydrOXYzine 50 MG/ML INJ 25 MG IM (12:51)
--- NOTE | 2021-05-09 13:33 | SUR.PHASEI ---
Patient transferred in bed to room 218 by this RN. Pt awakes to voice. States nausea has subsided. O2 sat on arrival 96% on room air and HR 76. Dressing clean, dry and intact, SHARAN with scant drainage. Pt transferred with belongings, bed left locked in low position, call light in reach.
--- NOTE | 2021-05-09 13:55 | PC.NURSE ---
Pt arrived from PACU at 1330, very drowsy but arousable. A&Ox4, fluff dressing to R breast intact with breast binder in place, nathanael drain to R chest. Pt c/o a little pain and a little nausea but quickly falls back asleep. Oriented to room and call light.
[2021-05-09] MEDS: OXYCODONE IR 5 MG TABLET PO ×2 (16:09→23:03)
[2021-05-09] MEDS: MONTELUKAST 10 MG TABLET PO (16:10)
[2021-05-09] MEDS: ACETAMINOPHEN 325 MG TABLET 650 MG PO ×2 (18:28→23:03)
[2021-05-09] MEDS: SODIUM CHLORIDE 0.9% FLUSH 10 ML IV (21:21)
[2021-05-10] VITALS (7 sets, daily range): BP systolic 113–125; BP diastolic 59–69; PULSE 60–85; RESP 14–18; TEMP 36.4–37; O2SAT 94–97
[2021-05-10] MEDS: ACETAMINOPHEN 325 MG TABLET 650 MG PO ×2 (06:23→12:01)
[2021-05-10] MEDS: OXYCODONE IR 5 MG TABLET PO (06:23)
--- NOTE | 2021-05-10 09:02 | CM.DANOTE ---
DCP: Case received, EMR reviewed and met with patient. Introduced self and role. Was able to obtain information regarding patient's baseline activity status prior to surgery. DCP assessment completed with information currently available. Patient is a 61 year old female who admitted yesterday morning to the care of the surgical team. PCP: LUZ Cooper. Payer: confirmed: [facility] Plan. Patient came to the hospital via private vehicle for a surgical procedure. Patient had a right mastectomy with sentinal lymp node biopsy. Met with patient in her room. She is alert and oriented, pleasant. She was sitting up in bed. She is independent at her baseline, and resides with her spouse, Isauro, here in [employer] who will assist her with any needs at home. Patient works for the [employer]. P: DCP to continue to follow. Patient should be able to go home when she is deemed medically stable. Helena Weaver RN/Cask Maker Discharge Planning/Care Management CM Discharge Assessment Start: 05/10/21 08:53 Freq: Status: Active Protocol: Document 05/10/21 08:54 (Rec: 05/10/21 09:02 [id number]) Discharge Planning Assessment Assigned Chemistry Research Assistant Helena Weaver RN/Cask Maker Advance Directives? No History Provided By Patient,Medical Record Household Members spouse Type of transporation used prior to Drives own vehicle admit Independent with ADL's Yes Is patient alert and oriented? Yes Caregiver for Another No Barriers to Discharge No Discharge Plan Home Transportation Arrangement Spouse Referrals Initiated None needed Whiteboard Updated in Patient Room with Yes name and ext. # of Chemistry Research Assistant Review Status In Process Next Review Type Continued Stay Review Pre-Anesthesia Assessment Start: 05/03/21 11:47 Freq: Status: Complete Protocol: Document 05/03/21 11:47 CAB (Rec: 05/03/21 11:52 CAB [id number]) Pre-Anesthesia Assessment Patient Information Reviewed Via Chart Review Comment COVID screen @ 05/08/21 Primary Care Provider Alyssa Castillo Seen Specialist in Last 12 Months Yes Specialist Seen General surgeon Primary Language Czech Preferred Language Czech Portrait Artist Required No Height 5 ft 3 in Weight 190 lb Body Mass Index (BMI) 33.6 Barriers to Learning None Hx Anesthesia Reactions Yes: PONV, SLOW TO AWAKEN Hx Family Anesthesia Reaction No Hx Malignant Hyperthermia No Hx Blood Transfusions No Hx Blood Transfusion Reaction No Manager Academic No alcohol intake current alcohol intake frequency a few times a month Smoking Status Former smoker Tobacco type cigarettes how long ago did patient quit smoking 26 YRS AGO Substance Use Type does not use History of Falling (Recent or History of No ) Patient is completely paralyzed or No completely immobile Mental Status Oriented to own ability Is patient on oxygen? No Does patient have DOTY/SOB No Hx Sleep Apnea No CPAP/BIPAP use not prescribed Currently Taking a Beta Jean No Hx Chest Pain No Hx SOB No Hx Syncope or Dizziness No Anti-Coagulant Therapy No Has a Concrete Products Machine Operator No Cardiac Testing No Hx Pacemaker/ICD No Pacemaker Rep Required? No Cardiac Clearance Received Not Applicable Urinary Catheter Present No Hx Urinary Self Catheterization No Diabetes No Patient No Lactating No Presence of External or Internal Medical Yes: CHIN IMPLANT Devices Received a COVID vaccine? Yes: Needs booster Received all doses? Yes Marital Status Lives With spouse Patient Discharge Plan Description Return Home Advance Directives? No
[2021-05-10] MEDS: SODIUM CHLORIDE 0.9% FLUSH 10 ML IV (09:26)
--- NOTE | 2021-05-10 15:24 | PC.NURSE ---
A&Ox4. VSS. Pain 09/14, controlled with Tylenol. SHARAN drain draining blood, emptied 20cc. Chest binder in place. Taught how to empty and track at home. IV removed. Discharge instructions reviewed. Wheeled off of unit at 1500.
== END 2021-05-10 15:05 | disposition home or self-care (01) ==
LOC: AC 07:11
PROVIDERS: Admitting Provider Surgery; PCP Nurse Practitioner Family; Referring Provider Surgery; Visit Provider Surgery
PROC: 0HTT0ZZ Resection of Right Breast, Open Approach (ICD-10-PCS; CPT 19303; principal; 2021-05-09 09:00)
DX: C50.911 Malignant neoplasm of unspecified site of right female breast (principal); J45.909 Unspecified asthma, uncomplicated
CPT/HCPCS: 38525; 19303; 78195; 94760; A9541; G0378; A9270; J0690; J1100; J1885; J2250; J2405; J2704; J2765; J3010; J3410; J8501; Q9968

== ENCOUNTER 2021-09-11 17:44 | Emergency (ER) | payer OTHER, SELFPAY ==
[2021-06-07 16:36] VITALS: BMI 33.6
--- NOTE | 2021-09-11 17:47 | DI.US.S_ITS ---
PROCEDURE: US PERIPH VENOUS LOW EXTREM RT INDICATIONS: rt leg pain/swelling for several weeks, sent for r/o DVT TECHNIQUE: Real-time imaging, as well as color and pulse Doppler interrogation, were performed of the lower extremity deep veins from the inguinal ligament to the popliteal fossa. COMPARISON: None. FINDINGS: The common femoral, femoral and popliteal veins are normally compressible, and free of intraluminal thrombus. Color and pulse Doppler demonstrate normal phasic intraluminal flow. There is normal augmentation response to distal compression maneuver. IMPRESSION: No evidence of right lower extremity DVT. Dictated by: Chelsy Lott M.D. on 09/11/2021 at 18:15 Approved by: Chelsy Lott M.D. on 09/11/2021 at 18:15
--- NOTE | 2021-09-11 20:01 | DI.RAD.S_ITS ---
PROCEDURE: XR CHEST 2V INDICATIONS: shortness of breath TECHNIQUE: 2 views of the chest were acquired. COMPARISON: [facility], CR, XR CHEST 2V, 10/07/2017, 15:24. FINDINGS: Surgical changes and devices: None. Lungs and pleura: Lungs are clear. No pleural effusions or pneumothorax. Mediastinum: Mediastinal contours are normal. Heart size is normal. Bones and chest wall: No suspicious bony abnormalities. Soft tissues appear unremarkable. IMPRESSION: 1. No acute cardiopulmonary disease. Dictated by: Brendon Matthew M.D. on 09/11/2021 at 20:32 Approved by: Brendon Matthew M.D. on 09/11/2021 at 20:34
== END 2021-09-11 21:33 | disposition left against medical advice (07) ==
PROVIDERS: Emergency Provider Emergency Medicine; PCP Registered Nurse Diabetes Educator; Referring Provider Registered Nurse Diabetes Educator
DX: R06.02 Shortness of breath (principal); M79.604 Pain in right leg
CPT/HCPCS: 71046; 93971; 99281

== ENCOUNTER → 2022-02-07 16:32 | Outpatient (CLI) | payer OTHER, SELFPAY ==
[2021-06-07 16:36] VITALS: BMI 33.6
--- NOTE | 2022-02-07 16:35 | DI.MRI.S_ITS ---
PROCEDURE: MR KNEE RT WO CON INDICATIONS: TEAR OF MEDIAL MENISCUS OF RIGHT KNEE* TECHNIQUE: Noncontrast sagittal PD fast spin echo and T2 fast spin echo with fat saturation, sagittal 3-D FLASH with fat saturation; coronal T1 spin echo and PD fast spin echo with fat saturation, and axial PD fast spin echo with fat saturation through the knee. COMPARISON: [facility], MR, MR KNEE LT WO CON, 05/03/2019, 8:32. FINDINGS: Image quality: Excellent Menisci: Medial: Mostly horizontally oriented tear of the anterior horn and body of the medial meniscus. The posterior root appears intact and the meniscal capsular junction appears intact. The tear extends to the body with a vertical component at the free edge. Mild extrusion. Lateral: There is some peripheral fraying and internal degenerative signal. The meniscal popliteal fascicles appear intact. Cruciate ligaments: Intact Medial structures: MCL: Mild periligamentous edema Pes anserine tendons: Intact Semimembranosus: Intact Lateral structures: LCL: Intact Biceps femoris: Intact IT band: Intact Popliteus tendon: Intact Anterior structures: Extensor mechanism: Intact Fat pads: No pathologic edema Medial retinaculum: Edema is seen adjacent to femoral attachment. Trochlea: Unremarkable morphology. Bone and joint: Bones: No fracture, dislocation, or suspicious edema Cartilage: Partial thickness [id number] cartilage loss in the patellofemoral compartment and medial compartment. Joint space: Joint effusion is present, small in volume Westbrook's cyst: None Soft tissues: No significant vascular or other soft tissue pathology. IMPRESSION: Medial meniscal tear as described above. Mild sprain of the MCL. There is also edema at the MPFL/medial retinacular attachment. [id number] medial and patellofemoral chondromalacia. Dictated by: Ayaan Ellison M.D. on 02/08/2022 at 9:16 Approved by: Ayaan Ellison M.D. on 02/08/2022 at 9:24
== END ==
PROVIDERS: PCP Registered Nurse Diabetes Educator; Referring Provider Orthopaedic Surgery Foot and Ankle Surgery; Visit Provider Orthopaedic Surgery Foot and Ankle Surgery
DX: S83.241A Other tear of medial meniscus, current injury, right knee, initial encounter (principal); S83.411A Sprain of medial collateral ligament of right knee, initial encounter; M22.41 Chondromalacia patellae, right knee
CPT/HCPCS: 73721

== ENCOUNTER → 2022-05-27 16:18 | Outpatient (CLI) | payer OTHER, SELFPAY ==
[2021-06-07 16:36] VITALS: BMI 33.6
--- NOTE | 2022-05-27 | DI.MG.S_ITS ---
UNILATERAL LEFT DIGITAL SCREENING MAMMOGRAM 3D/2D WITH CAD POST MASTECTOMY: 05/27/2022 CLINICAL: Routine screening. Personal history of right breast cancer. Comparison is made to exams dated: 04/30/2021 mammogram - [facility], 03/27/2020 mammogram, and 10/17/2017 mammogram - [facility]. The left breast is heterogeneously dense, which may obscure small masses (category c / 51-75% glandular tissue). Current study was also evaluated with a Computer Aided Detection (CAD) system. There are stable benign calcifications in the left breast. No significant masses, calcifications, or other findings are seen in the breast. There has been no significant interval change. IMPRESSION: BENIGN There is no mammographic evidence of malignancy. A 1 year screening mammogram is recommended. This exam was interpreted at Station ID: [id number]. NOTE: For mammograms, a report in lay terms will be sent to the patient. Approximately 15% of breast malignancies will not be visualized mammographically. In the management of a palpable breast mass, a negative mammogram must not discourage biopsy of a clinically suspicious lesion. Electronically Signed By: Jovanni Verde M.D. acr/penrad:05/27/2022 16:47:37 copy to: Ryan Waggoner letter sent: Normal Exam ACR BI-RADS Category 2: Benign Finding(s) [id number]
== END ==
PROVIDERS: PCP Registered Nurse Diabetes Educator; Referring Provider Registered Nurse Diabetes Educator; Visit Provider Registered Nurse Diabetes Educator
DX: Z12.31 Encounter for screening mammogram for malignant neoplasm of breast (principal); Z85.3 Personal history of malignant neoplasm of breast
CPT/HCPCS: 77063; 77067

== ENCOUNTER → 2022-06-26 16:31 | Outpatient (CLI) | payer OTHER, SELFPAY ==
[2021-06-07 16:36] VITALS: BMI 33.6
[2022-06-26 16:55] LABS: Add Manual Diff / Slide Review NO; Basophils Absolute Auto 0 /uL (0-100); Basophils Percent Auto 0.4 % (0-2); Eosinophils Absolute Auto 200 /uL (0-450); Eosinophils Percent Auto 2.3 % (2-4); Hematocrit 43.4 % (36-46); Hemoglobin 14.5 g/dL (12.0-16.0); Lymphocytes Absolute Auto 2700 /uL (1100-4500); Lymphocytes Percent Auto 38.4 % (25-40); Mean Corpuscular HGB Conc 33.4 % (30-36); Mean Corpuscular Hemoglobin 28.4 PG (26-34); Mean Corpuscular Volume 85.1 fL (80-100); Monocytes Absolute Auto 600 /uL (0-900); Monocytes Percent Auto 9.2 % (3-14); Neutrophils Absolute Auto 3500 /uL (1500-7000); Neutrophils Percent Auto 49.7 % (50-75); Platelet Count 215 X10^3/uL (150-400); Red Cell Distribution Width 13.5 % (11.6-14.8)
[2022-06-26 17:12] LABS: Alanine Aminotransferase 26 IU/L (<35); Albumin 4.4 g/dL (3.5-5.0); Albumin Globulin Ratio 1.3 (1.0-2.8); Alkaline Phosphatase 72 U/L (38-126); Aspartate Aminotransferase 26 IU/L (14-36); Bilirubin Total 0.5 mg/dL (0.2-1.3); Blood Urea Nitrogen 11 mg/dL (7-17); Calcium 9.1 mg/dL (8.4-10.2); Carbon Dioxide 28 mmol/L (22-32); Chloride 103 mmol/L (98-107); Estimated Glomerular Filt Rate > 60 mL/min (>60); Globulin 3.3 g/dL (1.7-4.1); Glucose 88 mg/dL (80-110); HEMOLYSIS < 15 (0-50); Potassium 4.4 mmol/L (3.4-5.1); Sodium 138 mmol/L (137-145); Total Protein 7.7 g/dL (6.3-8.2)
[2022-06-26 17:13] LABS: Cholesterol 240 mg/dL (140-199); HDL Cholesterol 56 mg/dL (40-60); LDL Cholesterol Calculated 140 mg/dL (<100); Triglycerides 219 mg/dL (35-150)
== END ==
PROVIDERS: PCP Registered Nurse Diabetes Educator; Referring Provider Internal Medicine Medical Oncology; Visit Provider Internal Medicine Medical Oncology
DX: D05.11 Intraductal carcinoma in situ of right breast (principal); E78.5 Hyperlipidemia, unspecified
CPT/HCPCS: 36415; 80053; 80061; 85025

== ENCOUNTER → 2023-02-10 17:01 | Outpatient (CLI) | payer OTHER, SELFPAY ==
[2021-06-07 16:36] VITALS: BMI 33.6
--- NOTE | 2023-02-10 17:03 | DI.RAD.S_ITS ---
PROCEDURE: XR FOOT LT MIN 3V INDICATIONS: 5th and 4th toe injury TECHNIQUE: 3 views of the foot were acquired. COMPARISON: None. FINDINGS: Bones: Mildly displaced fracture of the 5th proximal phalanx mid to distal diaphysis. No suspicious bony lesions. Mild plantar and posterior calcaneal enthesophytes. Soft tissues: No tibiotalar joint effusion. Achilles tendon appears normal. IMPRESSION: Mildly displaced fracture of the 5th proximal phalanx. Dictated by: Fidencio Lynn M.D. on 02/11/2023 at 12:40 Approved by: Fidencio Lynn M.D. on 02/11/2023 at 12:42
== END ==
PROVIDERS: PCP Registered Nurse Diabetes Educator; Referring Provider Nurse Practitioner Family; Visit Provider Nurse Practitioner Family
DX: S92.512A Displaced fracture of proximal phalanx of left lesser toe(s), initial encounter for closed fracture (principal); X58.XXXA Exposure to other specified factors, initial encounter
CPT/HCPCS: 73630

== ENCOUNTER → 2023-08-16 12:23 | Outpatient (CLI) | payer OTHER, SELFPAY ==
[2021-06-07 16:36] VITALS: BMI 33.6
== END ==
PROVIDERS: PCP Registered Nurse Diabetes Educator; Visit Provider Nurse Practitioner Family
DX: J02.9 Acute pharyngitis, unspecified (principal)
CPT/HCPCS: 87070

== ENCOUNTER → 2023-11-06 09:39 | Outpatient (CLI) | payer OTHER, SELFPAY ==
[2021-06-07 16:36] VITALS: BMI 33.6
[2023-11-06 10:22] LABS: Add Manual Diff / Slide Review NO; Basophils Absolute Auto 0 /uL (0-100); Basophils Percent Auto 0.7 % (0-2); Eosinophils Absolute Auto 200 /uL (0-450); Eosinophils Percent Auto 3.3 % (2-4); Hematocrit 41.9 % (36-46); Hemoglobin 14.2 g/dL (12.0-16.0); Lymphocytes Absolute Auto 2000 /uL (1100-4500); Lymphocytes Percent Auto 34.5 % (25-40); Mean Corpuscular Hemoglobin 28.9 PG (26-34); Monocytes Absolute Auto 600 /uL (0-900); Neutrophils Absolute Auto 3100 /uL (1500-7000); Neutrophils Percent Auto 51.5 % (50-75); Platelet Count 198 X10^3/uL (150-400); Red Blood Cell Count 4.93 X10^6/uL (4.0-5.2); Red Cell Distribution Width 13.9 % (11.6-14.8); White Blood Cell Count 5.9 X10^3/uL (4.5-11.0)
[2023-11-06 10:53] LABS: Alanine Aminotransferase 22 IU/L (<35); Albumin 4.2 g/dL (3.5-5.0); Albumin Globulin Ratio 1.7 (1.0-2.8); Alkaline Phosphatase 63 U/L (38-126); Aspartate Aminotransferase 25 IU/L (14-36); BUN Creatinine Ratio 17.6 (6-22); Bilirubin Total 0.7 mg/dL (0.2-1.3); Blood Urea Nitrogen 12 mg/dL (7-17); Calcium 9.5 mg/dL (8.4-10.2); Carbon Dioxide 26 mmol/L (22-32); Chloride 107 mmol/L (98-107); Cholesterol 197 mg/dL (140-199); Estimated Glomerular Filt Rate > 60 mL/min (>60); Globulin 2.5 g/dL (1.7-4.1); Glucose 107 mg/dL (80-110); HDL Cholesterol 49 mg/dL (40-60); HEMOLYSIS < 15 (0-50); LDL Cholesterol Calculated 125 mg/dL (<100); Potassium 4.9 mmol/L (3.4-5.1); Sodium 141 mmol/L (137-145); Total Protein 6.7 g/dL (6.3-8.2); Triglycerides 117 mg/dL (35-150)
== END ==
PROVIDERS: PCP Registered Nurse Diabetes Educator; Referring Provider Registered Nurse Diabetes Educator; Visit Provider Registered Nurse Diabetes Educator
DX: D05.11 Intraductal carcinoma in situ of right breast (principal); E78.5 Hyperlipidemia, unspecified
CPT/HCPCS: 36415; 80053; 80061; 85025